=== PATIENT | male | born 1970 | race Caucasian/White ===

== ENCOUNTER 2018-11-18 08:20 | Day surgery (SDC) | payer OTHER ==
[2018-11-13 09:27] LABS: HEMATOCRIT 48.4 % (37.9-51.0); HEMOGLOBIN 16.2 g/dL (13.5-17.0); MEAN CORPUSCULAR HEMOGLOBIN 28.5 pg (27.0-33.4); MEAN CORPUSCULAR HGB CONC 33.5 g/dL (32.0-36.0); MEAN CORPUSCULAR VOLUME 85 fl (80-97); PLATELET COUNT 197 10^3/uL (150-450); RED BLOOD COUNT 5.69 10^6/uL (4.35-5.55); RED CELL DISTRIBUTION WIDTH 13.4 % (11.5-14.0); WHITE BLOOD COUNT 6.9 10^3/uL (4.0-10.5)
[2018-11-13 09:28] LABS: APPEARANCE,URINE CLEAR; BILIRUBIN,URINE NEGATIVE (NEGATIVE); COLOR,URINE STRAW; GLUCOSE, URINE NEGATIVE (NEGATIVE); KETONES,URINE NEGATIVE (NEGATIVE); LEUKOCYTE ESTERASE,URINE NEGATIVE (NEGATIVE); NITRITE,URINE NEGATIVE (NEGATIVE); PROTEIN,URINE NEGATIVE (NEGATIVE); URINE SPECIFIC GRAVITY 1.006; UROBILINOGEN,URINE NEGATIVE mg/dL (<2.0)
--- NOTE | 2018-11-13 09:40 | RADIOLOGY REPORT (SQ) ---
EXAM DESCRIPTION: CHEST PA/LATERAL COMPLETED DATE/TIME: 11/13/2018 9:30 am REASON FOR STUDY: PRE-OP COMPARISON: None. EXAM PARAMETERS: NUMBER OF VIEWS: two views TECHNIQUE: Digital Frontal and Lateral radiographic views of the chest acquired. RADIATION DOSE: NA LIMITATIONS: none FINDINGS: LUNGS AND PLEURA: Minimal linear atelectasis in the left base. Lung braun are otherwise clear. MEDIASTINUM AND HILAR STRUCTURES: No masses or contour abnormalities. HEART AND VASCULAR STRUCTURES: Heart normal size. No evidence for failure. BONES: No acute findings. HARDWARE: None in the chest. OTHER: No other significant finding. IMPRESSION: Minimal linear atelectasis in the left base. No other significant findings. TECHNICAL DOCUMENTATION: JOB ID: [id number] [email or web address]- All Rights Reserved Reading location - IP/workstation name: [email or web address]
[2018-11-13 09:47] LABS: ANION GAP 11 (5-19); BLOOD UREA NITROGEN 14 mg/dL (7-20); CALCIUM 9.6 mg/dL (8.4-10.2); CARBON DIOXIDE 28 mmol/L (22-30); CHLORIDE 103 mmol/L (98-107); GLUCOSE 74 mg/dL (75-110)
--- NOTE | 2018-11-14 14:25 | EKG REPORT ---
SEVERITY:- NORMAL ECG - SINUS RHYTHM : Confirmed by: Nick Harper 14-Nov-2018 14:24:32
[~2018-11-18 08:20] MED LIST: BUPIVACAINE HCL 0.5 % INJ/PF 30 ML SDV ONE; LIDOCAINE 1%/EPINEPHRINE INJ 20 ML VIAL ONE
[2018-11-18] MEDS ORDERED: CEFAZOLIN 1 GM/D5W RTU 0 GM/0 ML RTUPB IV ONE (10:05)
[2018-11-18] MEDS ORDERED: CEFAZOLIN SODIUM 2 GM in DEXTROSE 5%-WATER 100 ML IV PRN (10:10)
[2018-11-18] MEDS ORDERED: PROPOFOL INJ 200 MG/20 ML VIAL IV ONE ×2 (10:15→12:21)
[2018-11-18] MEDS ORDERED: LIDOCAINE 2% INJ-PF (20 MG/ML) 10 ML AMPUL ONE (10:15)
[2018-11-18] MEDS ORDERED: FENTANYL CITRATE INJ/PF 100 MCG/2 ML AMPUL ONE ×2 (10:15→13:10)
[2018-11-18] MEDS ORDERED: MIDAZOLAM 2 MG/2 ML INJ ONE ×2 (10:15→12:21)
[2018-11-18] MEDS ORDERED: DIPHENHYDRAMINE HCL 50 MG/ML VIAL IV PRN (12:35)
[2018-11-18] MEDS ORDERED: FENTANYL CITRATE INJ/PF 100 MCG/2 ML AMPUL IV PRN ×3 (12:35)
[2018-11-18] MEDS ORDERED: ONDANSETRON HCL INJ/PF 4 MG/2 ML SDV IV PRN (12:35)
[2018-11-18] MEDS ORDERED: PROMETHAZINE HCL INJ 25 MG/1 ML VIAL IV PRN ×2 (12:35)
[2018-11-18] MEDS ORDERED: MEPERIDINE HCL/PF INJ 25 MG/1 ML DISP.SYRIN IV PRN (12:35)
--- NOTE | 2018-11-18 12:54 | Discharge Summary ---
Discharge Summary (SDC) - Discharge Final Diagnosis: R med meniscal tear Date of Surgery: 11/18/18 Discharge Date: 11/18/18 Condition: Good Treatment or Instructions: Activity as tolerated. Remove compressive wrap on Sunday area underlying tight dressing can be left in place until you return to the office. You can shower with the OpSite dressing. Prescriptions: Hydrocodone/Acetaminophen [Flushing 5-325 mg Tablet] 1 tab PO Q6 PRN #28 tablet PRN Reason: Referrals: IVAN VASQUEZ PA [Primary Care Provider] - Discharge Diet: As Tolerated, Regular Respiratory Treatments at Home: Deep Breathing/Coughing Discharge Activity: Balance Activity w/Rest, No tub bath Home Care Assistance: None Needed Report the Following to Your Physician Immediately: Fever over 101 Degrees, Drainage-Foul Smelling
--- NOTE | 2018-11-18 12:58 | Operative Report ---
Operative Report DATE OF SURGERY: 11/18/18 PREOPERATIVE DIAGNOSIS: Right medial meniscal tear POSTOPERATIVE DIAGNOSIS: Right medial meniscal tear. 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 Intact ACL. Grade 1 chondral malacia lateral compartment. Intact lateral meniscus. Grade 3 chondral malacia the patellofemoral compartment OPERATION: Arthroscopic partial medial meniscectomy SURGEON: LEIGH ANN WALKER ANESTHESIA: LMAC ESTIMATED BLOOD LOSS: Minimal PROCEDURE: With the patient supine on the operating table the right lower extremities prepped and draped in sterile fashion. The knee is insufflated with combination of Marcaine, Xylocaine, and epinephrine through medial and lateral infrapatellar portals. Subsequent medial and lateral patella portals are created for the introduction of arthroscope and debridements mentation. The joint is examined in systematic fashion findings as above. Using combination basket Yun, mechanical shaver, electric frequency ablation probe a partial medial meniscectomy performed prompt from approximately 4:00 to 12:00 on the face of the dial. The joint is again examined in systematic fashion with no new findings. His mentation was removed. Portals reapproximated interrupted nylon. A sterile compressive dressing was applied and the patient's return to the PACU in satisfactory condition.
[2018-11-18] MEDS ORDERED: KETOROLAC TROMETHAMINE INJ/PF 30 MG/1 ML SDV ONE (13:17)
[2018-11-18] MEDS ORDERED: ACETAMINOPHEN 1,000 MG/100 ML RTUPB IV ONE (13:17)
[2018-11-18] MEDS ORDERED: ONDANSETRON HCL INJ/PF 4 MG/2 ML SDV ONE (14:40)
[2018-11-18] MEDS ORDERED: METOCLOPRAMIDE HCL INJ/PF 10 MG/2 ML SDV ONE (14:40)
[2018-11-18] MEDS ORDERED: DEXAMETHASONE SOD PHOSPHATE INJ 4 MG/1 ML VIAL ONE (14:40)
[2018-11-18 14:48] VITALS: BP 117/69
== END 2018-11-18 14:51 | disposition home or self-care (01) ==
LOC: OROUT 08:20
PROVIDERS: ATTEND Orthopaedic Surgery
DX: M23.303 Other meniscus derangements, unspecified medial meniscus, right knee (principal); G47.30 Sleep apnea, unspecified; Z01.818 Encounter for other preprocedural examination
CPT/HCPCS: 93005; 36415; 85027; 80048; 81001; 71046; 93010; 29881; J2250; J3490 ×3; J0690; J1100; J3010; J1885; J2765; J2405; J7060; J2704; J0131

== ENCOUNTER 2019-12-28 12:59 | Emergency (ER) | payer OTHER ==
[2019-12-28] MEDS ORDERED: DIPH/PERTUSS(ACELL)/TETANUS VAC/PF 0.5 ML SYR (>=10YO) IM ONE (13:21)
[2019-12-28] MEDS ORDERED: HYDROCODONE/ACETAMINOPHEN 10-325 MG TABLET PO ONE (13:23)
--- NOTE | 2019-12-28 13:25 | ER Document Report ---
ED Medical Screen (RME) - General Chief Complaint: Laceration Stated Complaint: LACERATION/RIGHT THUMB Time Seen by Provider: 12/28/19 13:16 Primary Care Provider: IVAN VASQUEZ PA [Primary Care Provider] - Follow up as needed Mode of Arrival: Wheelchair Information source: Patient Notes: 49-year-old male presented to ED for 6 cm laceration to the right hand crossing the thumb. He states he cut it with a brush cutting blade. He states his tetanus is not up-to-date so that was ordered. He is a former smoker drinks 6-7 beers daily has surgery to the left lower leg right bicep repair right knee repair and degenerative disc disease. Patient is alert oriented respirations regular nonlabored speaking in full sentences. I have greeted and performed a rapid initial assessment of this patient. A comprehensive ED assessment and evaluation of the patient, analysis of test results and completion of medical decision making process will be conducted by an additional ED providers. TRAVEL OUTSIDE OF THE [place] IN LAST 30 DAYS: No - Related Data Allergies/Adverse Reactions: oxycodone Adverse Reaction (Verified 12/28/19 13:16) Past Medical History - Social History Chew tobacco use (# tins/day): No Frequency of alcohol use: Heavy Drug Abuse: None - Past Medical History Cardiac Medical History: Denies: Hx Coronary Artery Disease, Hx Heart Attack, Hx Hypertension Pulmonary Medical History: Denies: Hx Asthma, Hx Bronchitis, Hx COPD, Hx Pneumonia Neurological Medical History: Denies: Hx Cerebrovascular Accident, Hx Seizures Musculoskeltal Medical History: Reports Hx Arthritis - NECK/BACK Past Surgical History: Reports: Hx Tonsillectomy - adnoids - Immunizations Hx Diphtheria, Pertussis, Tetanus Vaccination: Yes Physical Exam - Vital signs Vitals: Temp Pulse Resp BP Pulse Ox 97.5 F 93 20 112/78 97 12/28/19 13:10 12/28/19 13:10 12/28/19 13:10 12/28/19 13:10 12/28/19 13:10 Course - Vital Signs Vital signs: Temp Pulse Resp BP Pulse Ox 97.5 F 93 20 112/78 97 12/28/19 13:10 12/28/19 13:10 12/28/19 13:10 12/28/19 13:10 12/28/19 13:10 Doctor's Discharge - Discharge Referrals: IVAN VASQUEZ PA [Primary Care Provider] - Follow up as needed
[2019-12-28] MEDS ORDERED: LIDOCAINE 1% INJ-PF (10 MG/ML) 30 ML SDV INJ ONE (13:30)
--- NOTE | 2019-12-28 13:31 | ER Document Report ---
HPI - HPI Time Seen by Provider: 12/28/19 13:16 Pain Level: 5 Context: Patient is a 49-year-old male presents emergency department with a chief complaint of a laceration to his right proximal thumb, the dorsal aspect of his hand. Patient states that he was using a weed eater and he states that a sawblade cut him. Patient received his tetanus immunization in triage. - ROS Systems Reviewed and Negative: Yes All other systems reviewed and negative - CONSTITUTIONAL Constitutional: DENIES: Fever, Chills - MUSCULOSKELETAL Musculoskeletal: REPORTS: Extremity pain - Right hand. DENIES: Swelling - DERM Skin Color: Normal Skin Problems: Laceration - See HPI. Past Medical History - General Information source: Patient - Social History Smoking Status: Former Smoker Chew tobacco use (# tins/day): No Frequency of alcohol use: Heavy Drug Abuse: None Family History: Reviewed & Not Pertinent Patient has homicidal ideation: No - Past Medical History Cardiac Medical History: Denies: Hx Coronary Artery Disease, Hx Heart Attack, Hx Hypertension Pulmonary Medical History: Denies: Hx Asthma, Hx Bronchitis, Hx COPD, Hx Pneumonia Neurological Medical History: Denies: Hx Cerebrovascular Accident, Hx Seizures Musculoskeletal Medical History: Reports Hx Arthritis - NECK/BACK Past Surgical History: Reports: Hx Tonsillectomy - adnoids - Immunizations Hx Diphtheria, Pertussis, Tetanus Vaccination: Yes Vertical Provider Document - CONSTITUTIONAL Agree With Documented VS: Yes Exam Limitations: No Limitations General Appearance: No Apparent Distress - INFECTION CONTROL TRAVEL OUTSIDE OF THE [place] IN LAST 30 DAYS: No - HEENT HEENT: Atraumatic, Normocephalic, PERRLA - NECK Neck: Normal Inspection - RESPIRATORY Respiratory: No Respiratory Distress - CARDIOVASCULAR Cardiovascular: Regular Rate Pulses: Normal: Radial - MUSCULOSKELETAL/EXTREMETIES Musculoskeletal/Extremeties: FROM, Tender - Right hand at proximal thumb - NEURO Level of Consciousness: Awake, Alert, Appropriate Motor/Sensory: No Motor Deficit, No Sensory Deficit - DERM Integumentary: Warm, Dry, Laceration - See procedure note Course - Re-evaluation Re-evalutation: 12/28/19 15:59 Patient was able to flex and extend his right thumb with no difficulty, but he did have pain when he rotated medially. Today I am having this pain, will refer the patient to orthopedics. Patient is a Dr. Richard patient. Will refer him to Dr. Kwon, Dr. Richard's partner. Patient was placed in a splint. See procedure note. Follow-up precautions were given. Verbal discharge inst ructions were given to the patient. They verbalized understanding. They are stable for discharge. - Vital Signs Vital signs: Temp Pulse Resp BP Pulse Ox 97.5 F 93 20 112/78 97 12/28/19 13:10 12/28/19 13:10 12/28/19 13:10 12/28/19 13:10 12/28/19 13:10 Procedures - Laceration/Wound Repair Right Hand Wound length (cm): 6 Wound's Depth, Shape: Linear Laceration pre-procedure: Sterile PPE donned, Sterile drapes applied, Shur-Clens applied Anesthetic type: 1% Lidocaine Volume Anesthetic (mLs): 10 Wound explored: Clean, No foreign body removed Irrigated w/ Saline (mLs): 100 Wound Debrided: Moderate Wound Repaired With: Sutures Suture Size/Type: 5:0, Nylon Number of Sutures: 7 Layer Closure?: No Hands back picture: 1 - 6 cm laceration Discharge - Discharge Clinical Impression: Hand laceration Qualifiers: Encounter type: initial encounter Foreign body presence: without foreign body Laterality: right Qualified Code(s): S61.411A - Laceration without foreign body of right hand, initial encounter Condition: Stable Disposition: HOME, SELF-CARE Instructions: Prophylactic Antibiotic ([facility]), Tetanus Immunization Given ([facility]) Additional Instructions: You were seen today in emergency department for a cut to your right hand. The x-ray did not show any fracture. Due to you having pain when you move your thumb, please follow-up with orthopedics tomorrow in regards to this visit. Take Clearwater 1 tablet every 4-6 hours as needed for pain. Take ibuprofen 600 mg every 6 hours [id number]. Keep the splint on your hand until you see orthopedics. Prescriptions: Cephalexin Monohydrate [Keflex 500 mg Capsule] 500 mg PO Q6H 5 Days #20 capsule Hydrocodone/Acetaminophen [Clearwater 5-325 mg Tablet] 1 tab PO ASDIR PRN #14 tablet PRN Reason: Referrals: IVAN VASQUEZ PA [NO LOCAL MD] - Follow up as needed FLORINDA KWON DO [ACTIVE STAFF] - Follow up tomorrow
--- NOTE | 2019-12-28 14:38 | RADIOLOGY REPORT (SQ) ---
EXAM DESCRIPTION: HAND RIGHT 3 VIEWS IMAGES COMPLETED DATE/TIME: 12/28/2019 2:06 pm REASON FOR STUDY: 6 cm laceration cut with a motor and generator brush cutter blade COMPARISON: None. EXAM PARAMETERS: NUMBER OF VIEWS: Three views. TECHNIQUE: AP, lateral and oblique radiographic images acquired of the right hand. LIMITATIONS: None. FINDINGS: MINERALIZATION: Normal. BONES: No acute fracture or dislocation. No worrisome bone lesions. JOINTS: No effusions. SOFT TISSUES: No soft tissue swelling. No foreign body. OTHER: No other significant finding. IMPRESSION: No retained radiopaque foreign body or acute osseous injury demonstrated. TECHNICAL DOCUMENTATION: JOB ID: [id number] 2010 [employer]- All Rights Reserved Reading location - IP/workstation name: [email or web address]
[2019-12-28 16:02] VITALS: BP 127/82
== END 2019-12-28 16:11 | disposition home or self-care (01) ==
LOC: ER 12:59
DX: S61.011A Laceration without foreign body of right thumb without damage to nail, initial encounter (principal); W27.8XXA Contact with other nonpowered hand tool, initial encounter; Y93.H2 Activity, gardening and landscaping; Z23 Encounter for immunization; Z87.891 Personal history of nicotine dependence
CPT/HCPCS: 90471; 90715; 99284